=== PATIENT | male | born 1980 ===

== ENCOUNTER 2018-08-25 08:55 | Emergency (ER) | payer OTHER ==
[~2018-08-25] VITALS: Ht 162.6 cm; Wt 88.5 kg
[2018-08-25] MEDS ORDERED: BUPRENORPHINE HC8 MG SL (10:11)
[2018-08-25 11:02] LABS: Source, Urine Clean Catch
[2018-08-25 11:04] LABS: Bilirubin, Urine Neg (Neg); Blood, Urine Neg (Neg); Glucose Qualitative, Urine Neg (Neg); Ketones, Urine Neg (Neg); Leukocyte Esterase, Urine Neg (Neg); Nitrite, Urine Neg (Neg); Protein, Urine 1+ (Neg); Urobilinogen, Urine NORM (Normal)
[2018-08-25 11:17] LABS: Appearance, Urine Clear (Clear); Color, Urine Yellow (P-Yellow)
[2018-08-25] MEDS ORDERED: PRED20 PO (11:33)
[2018-08-25] MEDS ORDERED: Robaxin500 MG PO (11:33)
== END 2018-08-25 11:40 | disposition home or self-care (01) ==
LOC: ER 08:55 → EDSEX 08:55 → ER 11:40
PROVIDERS: Physician Assistant
DX: M54.16 Radiculopathy, lumbar region (principal); Z79.899 Other long term (current) drug therapy; Z87.891 Personal history of nicotine dependence
CPT/HCPCS: 72100; 96372; 99283-25; J1885